=== PATIENT | female | born 1965 | race Caucasian/White ===

== ENCOUNTER 2019-07-04 15:45 | Outpatient (RCR) | payer OTHER, SELFPAY ==
--- NOTE | 2019-04-19 16:08 | PTOPEVAL ---
Thank you for referring this patient to [facility]. Please review, sign, date and return this plan of care KEELY. Pt presents with chronic ankle/foot pain that requires additional skilled therapy to address. Cont PT 2x/wk x 5 wk to address below noted impairments and achieve therapy goals. I agree with and certify that the following plan of care is medically necessary. Referring Physician Date Attending Provider: PHYSICIAN NOT ON STAFF Referring Provider: Sunny Castellanos DPM *PT Outpatient Evaluation Start: 04/19/19 14:58 Freq: Status: Active Protocol: Document 04/19/19 14:58 ALAN (Rec: 04/19/19 16:08 ALAN [email or web address]) Therapy Assessment Status Assessment Status Assessment Status Evaluation Outpatient Past Medical History Neurological History Hx Neurological Disorders No Significant History Cardiovascular History Hx Atrial Fibrillation Yes: cardiac ablasion 12/31 Hx Congenital Heart Disease Yes Hx Congestive Heart Failure Yes Hx Hypertension Yes Respiratory History Hx Chronic Obstructive Pulmonary Disease Yes (COPD) Hx Emphysema Yes Gastrointestinal History Hx Gastrointestinal Disorders No Significant History Genitourinary History Hx Genitourinary Disorders No Significant History Musculoskeletal History Hx Back Pain Yes Endocrine History Hx Endocrine Disorders No Significant History Integumentary History Hx Other Skin Disorders Yes: hives Psychosocial History Hx Psychiatric Disorders No Significant History Evaluation Information Problem Diagnosis right foot/ankle pain Onset 12/30 Cause unknown Subjective Information She was in [place] 12/30 due to Query Text:As Reported By Patient/ a-fib for 6 days. She started Family having achilles pain at this time. States the pain has progressed over the past year. She reports increased pain and difficulty with walking, right leg movement, ADL's, IADL's, steps. She will negoiate steps 1 at a time due to pain. She has trouble getting her leg on/off a horse when riding. She only went horse riding 2x this year due to pain. She reports she has gained 50# or more in the past 2 years. She had x-ray, but does not know the exact results.
--- NOTE | 2019-05-03 11:26 | PCPTNOTE ---
Patient did not show up for scheduled appointment this date. Pt called after her appt time to say she was going to try to make therapy. She did not show.
--- NOTE | 2019-05-21 15:04 | PTOPEVAL ---
Thank you for referring this patient to [facility] [place]. Please review, sign, date and return this plan of care KEELY. Pt has received 5 therapy visits to address her ankle/foot pain. She has improved with her LE strength, improved pain with daily activities, improved tolerance with walking and transfers, improved technique with walking. She is progressing towards her therapy goals. She requires additional skilled therapy 2x/wk x 3 wk to achieve maximal benefit and achieve all her therapy goals to allow her to perform daily activities without restrictions. I agree with and certify that the following plan of care is medically necessary. Referring Physician Date Attending Provider: PHYSICIAN NOT ON STAFF Referring Provider: Dr. Sunny Castellanos, NED *PT Outpatient Evaluation Start: 04/19/19 14:58 Freq: Status: Active Protocol: Document 05/21/19 13:59 CAP (Rec: 05/21/19 15:03 CAP [email or web address]) Therapy Assessment Status Assessment Status Assessment Status Re-evaluation Outpatient Past Medical History Neurological History Hx Neurological Disorders No Significant History Cardiovascular History Hx Atrial Fibrillation Yes: cardiac ablasion 12/31 Hx Congenital Heart Disease Yes Hx Congestive Heart Failure Yes Hx Hypertension Yes Respiratory History Hx Chronic Obstructive Pulmonary Disease Yes (COPD) Hx Emphysema Yes Gastrointestinal History Hx Gastrointestinal Disorders No Significant History Genitourinary History Hx Genitourinary Disorders No Significant History Musculoskeletal History Hx Back Pain Yes Endocrine History Hx Endocrine Disorders No Significant History Integumentary History Hx Other Skin Disorders Yes: hives Psychosocial History Hx Psychiatric Disorders No Significant History Evaluation Information Problem Diagnosis right foot/ankle pain Onset 12/30 Subjective Information She is now having more pain on Query Text:As Reported By Patient/ her great toe, but she thinks Family the way she has changed her walking has caused the toe pain. Reports prolonged standing and walking will increase sara foot/heel/lower leg pain. States her pain has improved with therapy. She is able to roll over in bed better since her knee is feeling better as her foot has improved. Pain Assessment Timing of Pain Assessment Timing of Pain Assessment Re-assessment Pain Scale Pain Scale Used Numeric (1 - 10) Self Report Pain Assessment Left Foot/Feet Reported Pain Level
--- NOTE | 2019-06-04 10:57 | PCPTNOTE ---
Patient called & cancelled scheduled appointment this date due to sickness.
--- NOTE | 2019-06-25 13:35 | PCPTNOTE ---
Patient called & cancelled scheduled appointment this date due to reason unknown.
--- NOTE | 2019-07-04 16:50 | PTOPEVAL ---
Thank you for referring this patient to [facility]. Please review, sign, date and return this plan of care KEELY. Pt has received 12 therapy visits to address her foot/ankle pain. She demonstrates improved ankle range, improved LE strength, improved balance and decreased gt deviations. Will f/u for 1 additional visit to finalize her HEP. I agree with and certify that the following plan of care is medically necessary. Referring Physician Date Admitting Provider: Attending Provider: PHYSICIAN NOT ON STAFF Referring Provider: Dr. Sunny Castellanos DPM *PT Outpatient Evaluation Start: 04/19/19 14:58 Freq: Status: Active Protocol: Document 07/04/19 15:46 CAP (Rec: 07/04/19 16:47 CAP [email or web address]) Therapy Assessment Status Assessment Status Assessment Status Re-evaluation Outpatient Past Medical History Neurological History Hx Neurological Disorders No Significant History Cardiovascular History Hx Atrial Fibrillation Yes: cardiac ablasion 12/31 Hx Congenital Heart Disease Yes Hx Congestive Heart Failure Yes Hx Hypertension Yes Respiratory History Hx Chronic Obstructive Pulmonary Disease Yes (COPD) Hx Emphysema Yes Gastrointestinal History Hx Gastrointestinal Disorders No Significant History Genitourinary History Hx Genitourinary Disorders No Significant History Musculoskeletal History Hx Back Pain Yes Endocrine History Hx Endocrine Disorders No Significant History Integumentary History Hx Other Skin Disorders Yes: hives Psychosocial History Hx Psychiatric Disorders No Significant History Evaluation Information Problem Diagnosis right foot/ankle pain Onset 12/30 Cause unknown Subjective Information Pt went to hospital into Query Text:As Reported By Patient/ hospital for coloscopy on 20. Went to ED on 04/21/20 and was admited until 06/25/19 with 2 blood tranfusions. She has not been performing much activities since 06/20/19 due to medical status change. Today was her first day back at work. She reports her pain has improved since the start of therapy, but she will cont to vary with her pain and symptoms. She cont to have pain with prolonged standing and walking. She has increased pain with the prolonged st
--- NOTE | 2019-07-16 09:24 | PCPTNOTE ---
Patient called & cancelled scheduled appointment this date due to being sick. Unable to schedule patient prior to her insurance authorization expires.
--- NOTE | 2019-07-22 12:01 | PCPTNOTE ---
Attending Provider: Dr. Sunny Castellanos Patient:Radha uZniga Date of :1965 Patient has been seen for 12 therapy visits from 04/19/19-07/16/19. She has not returned for therapy visits since 07/04/19, therefore she will be discharged from therapy at this time. The goals have been partially achieved and is indep with a home exercise program. Thank you for referring this patient to [facility]. Please review, sign, date and return this discharge summary KEELY. I have been updated about the patient's current status and I agree with discharge from the above service at this time. Referring Physician Date
== END 2019-07-04 23:59 | disposition home or self-care (01) ==
LOC: ANHPT 15:45
DX: M76.61 Achilles tendinitis, right leg (principal); M25.571 Pain in right ankle and joints of right foot
CPT/HCPCS: 97035; 97110; 97112; 97140; 97162; 97530